=== PATIENT | female | born 1970 | race Caucasian/White ===

== ENCOUNTER 2017-05-11 23:17 | Emergency (ER) | payer OTHER, MEDICAID ==
[~2017-05-11] VITALS: Ht 170.2 cm; Wt 127.0 kg
[~2017-05-11 23:17] MED LIST: BUTALB-APAP-CA1 EAC1 PO; CYCLOBENZAPRINE10 MG PO; GABAPENTIN100 MG PO; HYDROCODON-ACE1 EAC5 PO; PROMETHAZI6.25 MG/2
[2017-05-12 00:19] VITALS: BP 147/78
== END 2017-05-12 00:19 | disposition home or self-care (01) ==
LOC: M.ERS 23:17
DX: S93.491A Sprain of other ligament of right ankle, initial encounter (principal); I10 Essential (primary) hypertension; F17.200 Nicotine dependence, unspecified, uncomplicated; Z88.2 Allergy status to sulfonamides; Z88.1 Allergy status to other antibiotic agents; X50.1XXA Overexertion from prolonged static or awkward postures, initial encounter; Y93.89 Activity, other specified; Y92.89 Other specified places as the place of occurrence of the external cause; Y99.8 Other external cause status

== ENCOUNTER 2018-08-23 12:07 | Emergency (ER) | payer OTHER ==
[~2018-08-23] VITALS: Ht 170.2 cm; Wt 127.0 kg
[2018-08-23 12:57] LABS: ABSOLUTE BASOPHILS 0.1 thou/uL (0.0-0.2); ABSOLUTE EOSINOPHILS 0.1 thou/uL (0.0-0.7); ABSOLUTE LYMPHOCYTES 4.5 thou/uL (0.8-5.3); ABSOLUTE MONOCYTES 0.8 thou/uL (0.0-1.2); ABSOLUTE NEUTROPHILS 10.7 thou/uL (1.6-8.1); BASOPHILS 0.4 %; EOSINOPHILS 0.7 %; HEMATOCRIT 41.7 % (37.0-47.0); HEMOGLOBIN 13.9 gm/dL (12.0-15.0); LYMPHOCYTES 27.7 %; MCH 28.2 pg (26.0-34.0); MCHC 33.3 g/dL (28.0-37.0); MCV 84.6 fL (80.0-100.0); MPV 8.2 fl. (7.2-11.1); NUCLEATED RBCS 0 /100WBC; PLATELET COUNT* 363 thou/uL (150-400); POLYS 66.2 %; RBC 4.93 mil/uL (4.20-5.00); RDW-CV 14.3 % (10.5-14.5); WBC 16.2 thou/uL (4.0-11.0)
[2018-08-23 13:04] LABS: ANION GAP 13 mmol/L (7-16); BUN 10 mg/dL (7-18); CHLORIDE 103 mmol/L (98-107); CO2 24 mmol/L (21-32); CREATININE 0.9 mg/dL (0.6-1.3); GLUCOSE 106 mg/dL (70-99); POTASSIUM 3.8 mmol/L (3.5-5.1); SODIUM 140 mmol/L (136-145)
[2018-08-23 13:15] LABS: ALBUMIN 3.3 g/dL (3.4-5.0); ALKALINE PHOSPHATASE 103 U/L (46-116); NT-PRO BRAIN NAT PEPTIDE 76 pg/mL (<300); SGOT 11 U/L (15-37); SGPT 21 U/L (30-65); TOTAL BILIRUBIN 0.3 mg/dL (<0.1-1.0); TOTAL PROTEIN 7.4 g/dL (6.4-8.2); TROPONIN-I LEVEL <0.06 ng/mL (<0.06)
[2018-08-23 13:32] LABS: APTT 30.8 Seconds (25.0-31.3); PROTIME 9.8 Seconds (9.20-11.50)
[2018-08-23] MEDS ORDERED: AZITHROMYCIN500 MG PO (14:07)
[2018-08-23] MEDS ORDERED: MEDROLDOSEPACK PO (14:07)
[2018-08-23] MEDS ORDERED: VENTOLIN HFA 1818 GM INH (14:07)
[2018-08-23 14:36] VITALS: BP 174/111
--- NOTE | 2018-08-23 14:37 | EKG ---
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[place] : 1970 Requested By: Jeovany Cano Order Number: [id number] MD: Mg Velásquez Measurements Intervals [place] Rate: 81 P: 35 WI: 140 QRS: -2 QRSD: 100 T: 66 QT: 412 QTc: 479 Interpretive Statements Sinus rhythm Possible left ventricular hypertrophy Borderline prolonged QT interval No previous ECG available for comparison Electronically Signed On 08-23-2018 14:37:42 CDT by Mg Velásquez [email or web address] <ELECTRONICALLY SIGNED> By: Mg Velásquez MD, [facility] 08/23/18 1437 1303 1303 Mg Velásquez MD, FACC /EPI
--- NOTE | 2018-08-23 14:37 | EKG ---
[place] [address] ELECTROCARDIOGRAM REPORT Name: DANDRE MCCALL Room: [facility]#: [id number] Admission: 08/23/18 Attend Phys: Discharge: Date of : 70 Report #: [id number] THIS REPORT FOR: //name// [facility] ED Test Date: 2018-08-23 Test Time: 12:50:47 Pat Name: DANDRE CAL Department: Room: Gender: F [employer] Work[employer]: : 1970 Requested By: Jaimee Mahajan Order Number: [id number] MD: Mg Velásquez Measurements Intervals [place] Rate: 71 P: 46 GA: 138 QRS: 6 QRSD: 100 T: 70 QT: 427 QTc: 465 Interpretive Statements Sinus rhythm Possible left ventricular hypertrophy No previous ECG available for comparison Electronically Signed On 08-23-2018 14:37:19 CDT by Mg Velásquez [email or web address] <ELECTRONICALLY SIGNED> By: Mg Velásquez MD, [facility] 08/23/18 1437 1250 1250 Mg Velásquez MD, FACC /EPI
== END 2018-08-23 14:37 | disposition left against medical advice (07) ==
LOC: M.ERS 12:07
PROVIDERS: Nurse Practitioner Family
DX: J20.9 Acute bronchitis, unspecified (principal); I10 Essential (primary) hypertension; E66.01 Morbid (severe) obesity due to excess calories; Z68.41 Body mass index [BMI] 40.0-44.9, adult; Z88.2 Allergy status to sulfonamides; F17.200 Nicotine dependence, unspecified, uncomplicated